=== PATIENT | female | born 1970 ===

== ENCOUNTER 2022-03-02 15:40 | Emergency (ER) | payer OTHER, SELFPAY ==
[2022-03-02 16:15] VITALS: BP 148/84; PULSE 99; RESP 20; TEMP 36.4; O2SAT 100; BMI 38.2
--- NOTE | 2022-03-02 17:15 | ED_ITS ---
HPI - General Adult General Time Seen by Provider: 17:14 Date Seen: 03/02/22 Chief complaint: Eye Problems Stated complaint: possible pink eye Time Seen by Provider: 03/02/22 17:05 History of Present Illness HPI narrative: 51-year-old female with history of diabetes, high blood pressure, hyperlipidemia, who presents with left eye pain and burning along with redness which started yesterday. Mild blurring, seems little worse in bright light. Some mattering. Describes the pain is itching and burning. She does wear contacts. She denies any injury or foreign body sensation today. No associated headache, nausea, or vomiting. Related Data Home Medications Medication Instructions Recorded Confirmed lisinopril 03/02/22 metformin 1,000 mg tablet 1,000 mg PO BID 03/02/22 03/02/22 pantoprazole 20 mg tablet,delayed 20 mg PO DAILY 03/02/22 03/02/22 release (Protonix) pantoprazole 40 mg tablet,delayed 40 mg PO BID 03/02/22 03/02/22 release sertraline 03/02/22 triamterene-hydrochlorothiazid 03/02/22 Previous Rx's Medication Instructions Recorded erythromycin 5 mg/gram (0.5 %) eye 0.5 inch OPHTHALMIC (EYE) BID 5 03/02/22 ointment Days #3.5 g Allergies Allergy/AdvReac Type Severity Reaction Status Date / Time montelukast [From Singulair] Allergy Verified 03/02/22 16:21 Review of Systems Status of ROS: Reports: 10 or more systems reviewed and unremarkable except as noted in History and below Exam Narrative: Exam Narrative: General: well nourished , NAD Head: Atraumatic and normocephalic ENT: External ears and external nose are normal Eyes: Dysconjugate gaze. Mild injection of the left conjunctiva with no ciliary flush, pupil is reactive. No pain with external ocular movements, no redness, tenderness, or swelling of the periorbital area. Mild white discharge. Neck: Full spontaneous range of motion of the neck Lungs: No respiratory distress Musculoskeletal: No tenderness or deformity Neurologic: No gross focal neurologic deficits Skin: No rashes Psych: Mood and affect are appropriate Const: Vital Signs, click to edit/add: Vital Signs - 24 hr 03/02/22 16:15 Temperature 97.6 F Pulse Rate [Left P ulse Oximeter] 99 Respiratory Rate 20 Blood Pressure [Ri ght Upper Arm] 148/84 H Pulse Oximetry 100 Documenting provider has reviewed patient's vital signs: yes Course Vital Signs Vital signs: Initial Vital Signs Temperature 97.6 F 03/02/22 16:15 Temperature Source Temporal Artery Scan 03/02/22 16:15 Pulse Rate 99 03/02/22 16:15 Pulse Rhythm 03/02/22 16:15 Respiratory Rate 20 03/02/22 16:15 Blood Pressure 148/84 H 03/02/22 16:15 Blood Pressure Mean 105 03/02/22 16:15 Blood Pressure Position Sitting 03/02/22 16:15 Pulse Oximetry 100 03/02/22 16:15 Oxygen Delivery Method 03/02/22 16:15 Vital Signs Temperature 97.6 F 03/02/22 16:15 Pulse Rate 99 03/02/22 16:15 Respiratory Rate 20 03/02/22 16:15 Blood Pressure 148/84 H 03/02/22 16:15 Pulse Oximetry 100 03/02/22 16:15 Temperature 97.6 F 03/02/22 16:15 Pulse Rate 99 03/02/22 16:15 Respiratory Rate 20 03/02/22 16:15 Blood Pressure 148/84 H 03/02/22 16:15 Pulse Oximetry 100 03/02/22 16:15 Medical Decision Making MDM Narrative Medical decision making narrative: Patient seen and examined, prior records reviewed. Differential diagnosis i ncludes but not limited to conjunctivitis, allergic reaction, seasonal allergies, corneal abrasion, periorbital cellulitis, preseptal cellulitis or abscess, acute angle closure glaucoma. Patient presents with left eye redness, itching, and burning. No ciliary flush, patient appears quite comfortable with no associated symptoms including headache nor nausea vomiting, no tenderness of the orbit on exam, acute angle closure glaucoma is clinically unlikely. Redness is quite mild but given that patient wears contacts and was around a lot of children recently, will be started on erythromycin ointment although this most likely is a viral conjunctivitis. Follow-up with ophthalmology early next week. Discharge Plan Discharge Clinical Impression: Conjunctivitis Patient Disposition: Home, Self-Care Condition: Stable Instructions: Conjunctivitis (ED) Additional Instructions: Take medications as prescribed. Cool packs for comfort. Tylenol or ibuprofen as needed for pain. Follow up in the eye clinic in 2-3 days for evaluation. Activity Level: No Restrictions Discharge Diet: Diabetic Prescriptions: New erythromycin 5 mg/gram (0.5 %) ointment 0.5 inch ophthalmic (eye) BID 5 Days Qty: 3.5 0RF No Action metformin 1,000 mg tablet 1,000 mg PO BID 0RF lisinopril 0RF triamterene-hydrochlorothiazid 0RF pantoprazole 40 mg tablet,delayed release (DR/EC) 40 mg PO BID 0RF pantoprazole [Protonix] 20 mg tablet,delayed release (DR/EC) 20 mg PO DAILY 0RF sertraline [Zoloft] 0RF Follow Up/Referrals: [facility] [Provider Group] - 2 Days Stand Alone Forms: [employer] Info Instructions
== END 2022-03-02 17:43 | disposition home or self-care (01) ==
LOC: ED 17:33
PROVIDERS: Emergency Provider Family Medicine; PCP Orthopaedic Surgery Hand Surgery
DX: H10.022 Other mucopurulent conjunctivitis, left eye (principal)
CPT/HCPCS: 99283; 99284

== ENCOUNTER 2023-02-12 11:58 | Inpatient (IN) | payer OTHER, SELFPAY ==
[2023-02-12] VITALS (8 sets, daily range): BP systolic 92–113; BP diastolic 58–99; PULSE 72–81; RESP 16–18; TEMP 36.1–36.6; O2SAT 95–100; BMI 31.0; BMI 32.3
--- NOTE | 2023-02-12 12:51 | CRLHL7_ITS ---
For Patients: As a result of the Cures Act, medical imaging exams and procedure reports are released immediately into your electronic medical record. You may view this report before your referring provider. If you have questions, please contact your health care provider. INDICATION: Injury COMPARISON: None TECHNIQUE: CT examination of the head was performed as axial sections without intravenous contrast. Images were obtained from the vertex of the skull through the skull base. Please note that all CT scans at this facility use dose modulation, iterative reconstruction, and/or weight-based dosing when appropriate to reduce radiation dose to as low as reasonably achievable. FINDINGS: The brain shows no sign of mass lesion, mass effect, hemorrhage, or edema. The ventricles and sulci are normal in appearance for the patient`s age. The visualized portions of the orbits are normal in appearance. The osseous structures are normal in their appearance with no sign of abnormality in the skull base or calvarium. IMPRESSION: No acute intracranial posttraumatic findings. Unremarkable examination. Please note that all CT scans at this facility use dose modulation, iterative reconstruction, and/or weight-based dosing when appropriate to reduce radiation dose to as low as reasonably achievable. Dictated by Mitul Roberts MD @ 02/12/2023 3:33:13 PM (Electronically Signed)
--- NOTE | 2023-02-12 12:53 | ED_ITS ---
HPI - General Adult General Chief complaint: Diarrhea Stated complaint: cant walk / talk Time Seen by Provider: 02/12/23 12:27 History of Present Illness HPI narrative: This 52-year-old female comes in reporting diarrhea for most of the days of the past 4 weeks. She states that she did go to a [place] facility and was treated with an antibiotic as there was a thought that she might have an ear infection. She does not report any fevers. The diarrhea was present before she started the antibiotic. She denies having any blood in the toilet. She states that she feels lightheaded at times and off balance and has fallen a couple times. She does not report any injury as result of the falls. She arrives here with normal vital signs. Related Data Home Medications Medication Instructions Recorded Confirmed lisinopril 20 mg 03/02/22 metformin 1,000 mg tablet 1,000 mg PO BID 03/02/22 02/12/23 pantoprazole 20 mg tablet,delayed 20 mg PO DAILY 03/02/22 02/12/23 release (Protonix) pantoprazole 40 mg tablet,delayed 40 mg PO BID 03/02/22 03/02/22 release sertraline 40 mg 03/02/22 triamterene-hydrochlorothiazid 03/02/22 albuterol sulfate 90 mcg/actuation 2 puff inhalation Q4H PRN dyspnea 02/12/23 02/12/23 aerosol inhaler aspirin 81 mg capsule 81 mg PO DAILY 02/12/23 02/12/23 fluticasone propionate 50 1 - 2 spray intranasal DAILY 02/12/23 02/12/23 mcg/actuation nasal spray,suspension insulin glargine-yfgn 100 unit/mL 30 unit subcut QPM 02/12/23 02/12/23 (3 mL) subcutaneous pen (Semglee (insulin glargine-yfgn) Pen) pioglitazone 45 mg tablet 45 mg PO DAILY 02/12/23 02/12/23 simvastatin 40 mg tablet 40 mg PO QPM 02/12/23 02/12/23 triamterene 75 1 tab PO DAILY 02/12/23 02/12/23 mg-hydrochlorothiazide 50 mg tablet Previous Rx's Medication Instructions Recorded erythromycin 5 mg/gram (0.5 %) eye 0.5 inch ophthalmic (eye) BID 5 03/02/22 ointment days #3.5 grams Allergies Allergy/AdvReac Type Severity Reaction Status Date / Time montelukast [From Singulair] Allergy Verified 03/02/22 16:21 Review of Systems Status of ROS: Reports: 10 or more systems reviewed and unremarkable except as noted in History and below Narrative: Constitutional: No fevers, no weight gain or loss. Eyes: No discharge. No vision changes. HENT: No congestion, no sore throat, no ear pain. Cardiovascular: No chest pain, no palpitations. Respiratory: No shortness of breath, no wheezes, no cough. Gastrointestinal: No abdominal pain, no vomiting. Diarrhea as reported above. Genitourinary: No dysuria, no hematuria. Musculoskeletal: Normal range of motion. Skin: No rashes, no pruritis. Neurological: No weakness, sensory change, speech change. She reports lightheadedness episodes. Endo/Heme/Allergies: No bruising or bleeding. No polydipsia. Pysch: no suicidality, no anxiety, no insomnia. All other systems reviewed and are negative. [facility] Social History Smoking Status: Current every day smoker What tobacco products do you use: cigarettes How often do you have a drink containing alcohol: 2-3 times a week AUDIT-C Alcohol total score: 3 Non-prescribed substance use: denies use Exam Narrative: Exam Narrative: Constitutional: Well-developed, well-nourished, no acute distress. HEENT: Normocephalic, atraumatic. Neck: Normal range of motion. Nontender. Supple. Heart: Regular. No murmurs. Normal rate. Intact distal pulses. Lungs: Clear to auscultation. No chest discomfort. No wheezes, rhonchi, or rales. Abdomen: Normal bowel sounds. Nontender. No rebound tenderness. Genitalia: Deferred. Back: No midline tenderness. Normal range of motion. Extremities: Normal range of motion. No injury. Skin: Intact. No rash. Warm. No erythema or pallor. Neurologic: No altered sensation. No weakness. Alert and oriented. Psychiatric: No suicidality. No anxiety or depression. No insomnia. Nursing notes and vitals signs are reviewed. Const: Vital Signs, click to edit/add: Vital Signs - 24 hr 02/12/23 12:17 Temperature 96.9 F L Pulse Rate [Right Brachial] 81 Respiratory Rate 18 Blood Pressure [Ri ght Upper Arm] 113/99 H Course Vital Signs Vital signs: Initial Vital Signs Temperature 96.9 F L 02/12/23 12:17 Temperature Source Temporal Artery Scan 02/12/23 12:17 Pulse Rate 81 02/12/23 12:17 Respiratory Rate 18 02/12/23 12:17 Blood Pressure 113/99 H 02/12/23 12:17 Blood Pressure Mean 103 02/12/23 12:17 Vital Signs Temperature 96.9 F L 02/12/23 12:17 Pulse Rate 81 02/12/23 12:17 Respiratory Rate 18 02/12/23 12:17 Blood Pressure 113/99 H 02/12/23 12:17 Temperature 96.9 F L 02/12/23 12:17 Pulse Rate 81 02/12/23 12:17 Respiratory Rate 18 02/12/23 12:17 Blood Pressure 113/99 H 02/12/23 12:17 Medical Decision Making MDM Narrative Medical decision making narrative: This patient arrives with report of weakness and ongoing diarrhea. An IV was established and labs were drawn. She did receive a L of normal saline intravenously. Labs returned with evidence of severe hyponatremia with sodium at 105. Her potassium and chloride levels are also decreased. The patient states that she has a history of hypercalcemia and there has not been any known cause for this. Her calcium today is elevated at 11. This patient has hyponatremia is chronic in nature. She does pose some risk for seizure or other complications yet some reassurance is there and that it is a chronic condition. The patient states that she has been drinking lots of water, more than 2 gal of water per day. She may have a syndrome of inappropriate antidiuretic hormone. Additionally she is taking triamterene hydrochlorothiazide which can also contribute to her hyponatremia. CT imaging of her head returns with no acute findings. I spoke with the hospitalist adult basic education instructor, Dr. Cota, who will arrange for admission and replenish her sodium balance over time. Lab Data Labs: Lab Results 02/12/23 Range/Units 13:40 WBC 8.52 (4.50-11.00) K/uL RBC 4.59 (4.00-5.20) m/uL Hgb 13.8 (12.0-16.0) gm/dL Hct 36.5 (33.0-51.0) % MCV 80 (80-100) fL MCH 30 (26-34) pg MCHC 38 H (32-36) gm/dL RDW Coeff of Jane 12.0 (11.5-15.5) % Plt Count 283 (140-440) K/uL Neut % (Auto) 73.3 H (42.0-72.0) % Lymph % (Auto) 17.8 L (20-44) % [place] % (Auto) 7.0 (0.0-11.0) % Eos % (Auto) 1.1 (0.0-7.0) % Baso % (Auto) 0.4 (0.0-3.0) % Neut # (Auto) 6.20 (1.7-7.0) K/uL Lymph # (Auto) 1.50 (0.90-2.90) K/uL [place] # (Auto) 0.60 (0.00-0.90) K/UL Eos # (Auto) 0.09 (0.00-0.50) K/uL Baso # (Auto) 0.03 (0.00-0.30) K/uL Sodium 105 L* (135-149) mmol/L Potassium 3.4 L (3.6-5.1) mmol/L Chloride 67 L (96-114) mmol/L Carbon Dioxide 25 (20-32) mmol/L BUN 28 (7-30) mg/dL Creatinine 2.0 H (0.5-1.5) mg/dL Estimated Creat Clear 34.39 Estimated GFR 30 ml/min Glucose 100 (60-115) mg/dL Calcium 11.0 H (8.4-10.6) mg/dL Discharge Plan Discharge Clinical Impression: Hyponatremia Patient Disposition: Admitted As Inpatient Condition: Unchanged Prescriptions: No Action metformin 1,000 mg tablet 1,000 mg PO BID lisinopril 20 mg triamterene-hydrochlorothiazid pantoprazole 40 mg tablet,delayed release (DR/EC) 40 mg PO BID pantoprazole [Protonix] 20 mg tablet,delayed release (DR/EC) 20 mg PO DAILY sertraline [Zoloft] 40 mg erythromycin 5 mg/gram (0.5 %) ointment 0.5 inch ophthalmic (eye) BID 5 Days Qty: 3.5 0RF pioglitazone 45 mg tablet 45 mg PO DAILY simvastatin 40 mg tablet 40 mg PO QPM triamterene-hydrochlorothiazid 75-50 mg tablet 1 tab PO DAILY albuterol sulfate 90 mcg/actuation HFA aerosol inhaler 2 puff INHALATION Q4H PRN (Reason: dyspnea) fluticasone propionate 50 mcg/actuation spray,suspension 1 - 2 spray INTRANASAL DAILY insulin glargine-yfgn [Semglee(insulin glarg-yfgn)Pen] 100 unit/mL (3 mL) insulin pen 30 unit subcut QPM aspirin 81 mg capsule 81 mg PO DAILY Follow Up/Referrals: Oumou Morillo MD [Primary Care Provider] -
[2023-02-12] MEDS: 0.9 % SODIUM CHLORIDE 1000 ml 1,000 ML 1200 ML IV (13:51)
[2023-02-12] MEDS: ONDANSETRON 2 MG/ML inj 4 MG IVP (13:51)
[2023-02-12 14:03] LABS: Chloride* 67 mmol/L (96-114)
[2023-02-12 14:04] LABS: Potassium* 3.4 mmol/L (3.6-5.1)
[2023-02-12 14:06] LABS: Est. Creatinine Clearance* 34.39; Estimated Glomerular Filt Rate 30 ml/min
[2023-02-12 14:07] LABS: Blood Urea Nitrogen* 28 mg/dL (7-30); Carbon Dioxide* 25 mmol/L (20-32); Glucose* 100 mg/dL (60-115)
[2023-02-12 14:12] LABS: Sodium* 105 mmol/L (135-149)
[2023-02-12 14:19] LABS: Basophils Absolute Auto 0.03 K/uL (0.00-0.30); Basophils Percent Auto 0.4 % (0.0-3.0); Eosinophils Absolute Auto 0.09 K/uL (0.00-0.50); Eosinophils Percent Auto 1.1 % (0.0-7.0); Hematocrit 36.5 % (33.0-51.0); Hemoglobin* 13.8 gm/dL (12.0-16.0); Immature Granulocytes Abs Auto 0.03 K/uL (0.00-0.30); Immature Granulocytes Pct Auto 0.4 %; Lymphocytes Percent Auto 17.8 % (20-44); Mean Corpuscular HGB Conc 38 gm/dL (32-36); Mean Corpuscular Hemoglobin 30 pg (26-34); Mean Corpuscular Volume 80 fL (80-100); Neutrophils Percent Auto 73.3 % (42.0-72.0); Platelet Count* 283 K/uL (140-440); Red Blood Count 4.59 m/uL (4.00-5.20); White Blood Count* 8.52 K/uL (4.50-11.00)
--- NOTE | 2023-02-12 14:23 | ED.NURSE ---
Pt's sister approached the nurse's station after Dr. Browning notified the pt of critical sodium level. Sister reports to this senior copywriter that she would recommend transfer to [facility] since pt will most likely be hospitalized. Pt is an established [place] pt and regularly sees physician at [facility]. Dr. Borwning notified in writing and verbally @ [id number].
[2023-02-12 14:29] LABS: Slide Review Reflex No
[2023-02-12 17:31] LABS: Albumin* 4.7 g/dL (3.3-5.0)
[2023-02-12 17:34] LABS: Aspartate Amino Transferase* 56 U/L (12-35); Bilirubin Direct* 0.7 mg/dL (0.0-0.5); Bilirubin Total* 0.8 mg/dL (0.1-1.5); Total Protein* 7.8 g/dL (6.0-8.3)
[2023-02-12 17:35] LABS: Alanine Aminotransferase* 36 U/L (4-35); Alkaline Phosphatase* 77 U/L (40-150)
--- NOTE | 2023-02-12 17:36 | P.IMHP_ITS ---
Hospitalist- H&P: HPI History of Present Illness Time Seen by Provider: 16:00 Date Seen: 02/12/23 Chief complaint: Weak, falls, difficulty talking Narrative: Jerilyn Orosco is a 52 year old woman in her usual state of health until about 4 weeks ago. 4 weeks ago she had the onset of diarrhea. She has had persistent diarrhea since then although it seems to have resolved over the last couple of days. She has not had a bowel movement for the last couple of days. Maximum number of stool she had an any particular day was 8. Describes her stools as watery, dark, sometimes green. Denies blood or melena in her stool. Denies frothy stools. Denies light-colored stools. In association with this she has had decreased urine output. She has had a dry mouth. She has tried to drink a lot a water to maintain her state of hydration. She states she has drink up to 3 bottles of water daily to try to achieve this. Despite that she is still has had a dry mouth. Denies fevers, rigors, diaphoresis. Denies rashes. Has continued to take her multiple medications during this time including her hydrochlorothiazide and triamterene. The patient's sister, Bridger, has been concern about the patient for the last 2 weeks and has become increasingly concerned over the last couple of days. Sister notes that the patient's thought processes seem slower and her speech seems slower than usual. Sister notes patient has been verbally more snappy an abusive. Couple of days ago the patient had multiple falls in the home. Sister bagged the patient to come in for assessment but the patient refused. For some reason the patient was agreeable to coming in today finally. Patient and sister indicated that the patient does not use any street or recreational drugs. Patient does smoke tobacco, 1/2 pack per day. Patient rarely drinks alcoholic beverages. Review of Systems Status of ROS: Reports: 10 or more systems reviewed and unremarkable except as noted in History and below Narrative: Aside from the 5 falls that the patient experience about 2 days ago, patient has had no other trauma or injury. Patient had no visible manifestation of the falls that she sustained, no lacerations, no contusions, no skin tears, no abrasions. Patient denies fevers, rigors, diaphoresis. No other signs or symptoms of infectious diseases. Denies chest heaviness, pressure, tightness, or pain. Denies dyspnea at rest, paroxysmal nocturnal dyspnea, orthopnea. Denies syncope or near-syncope. Denies nausea or vomiting. Acknowledges decreased interest in eating. Denies claudication or edema. Denies palpitations or chest fluttering. Has had no weight loss or weight gain. Denies night sweats. [facility] Medical History (Updated 02/12/23 @ 18:04 by Mason Cota MD) Uncomplicated asthma ?J45.909 - Unspecified asthma, uncomplicated (ICD-10) Tobacco dependence ?F17.200 - Nicotine dependence, unspecified, uncomplicated (ICD-10) Gastroesophageal reflux disease ?K21.9 - Gastro-esophageal reflux disease without esophagitis (ICD-10) Mixed hyperlipidemia ?E78.2 - Mixed hyperlipidemia (ICD-10) Anxiety disorder ?F41.9 - Anxiety disorder, unspecified (ICD-10) Chronic insomnia ?F51.04 - Psychophysiologic insomnia (ICD-10) Obesity (BMI 30.0-34.9) ?E66.9 - Obesity, unspecified (ICD-10) Diabetes mellitus type 2 in obese ?E11.69 - Type 2 diabetes mellitus with other specified complication (ICD-10) ?E66.9 - Obesity, unspecified (ICD-10) Essential hypertension ?I10 - Essential (primary) hypertension (ICD-10) Hypercalcemia ?E83.52 - Hypercalcemia (ICD-10) Surgical History (Updated 02/12/23 @ 17:21 by Mason Cota MD) S/P tonsillectomy ?Z90.89 - Acquired absence of other organs (ICD-10) S/P gastrointestinal surgery ?Z98.890 - Other specified postprocedural states (ICD-10) Status post lumbar discectomy ?Z98.890 - Other specified postprocedural states (ICD-10) Family History (Updated 02/12/23 @ 17:31 by Mason Cota MD) Father Heart disease Diabetes High blood pressure Stroke High cholesterol Sister Depression Sarcoidosis Social History (Updated 02/12/23 @ 17:27 by Mason Cota MD) Narrative: Lives alone. . No children. Designates her sister, Bridger, , as her health spokesperson in event she is unable to speak on her own behalf. Desires full resuscitation in event of cardiopulmonary demise. What is your current living situation: I presently have a place to live Problems where you live: no known problems and other Problems where you live details: takes a long time for me to get up the stairs. 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 Highest level of school completed/degree received: Bachelor's degree Smoking Status: Current every day smoker What tobacco products do you use: cigarettes Smoking packs per day: 0.5 Smoking cigarettes per day: 10.0 Years smoked: 25 Smoking pack-years: 12.50 Do you use any of these nicotine containing products: None Second hand tobacco smoke exposure: No How often do you have a drink containing alcohol: 2-3 times a week Alcohol type details: stopped about a month ago How often do you have six or more drinks on one occasion: Never AUDIT-C Alcohol total score: 3 Non-prescribed substance use: denies use Caffeine: Yes (200mg caffiene pill) How often does anyone, including family, friends and others, physically hurt you : How often does anyone, including family, friends and others, insult or talk down to you: How often does anyone, including family, friends and others, threaten you with harm: How often does anyone, including family, friends and others, scream or curse at you: service: No Meds Home Medications and Allergies Home Medications Medication Instructions Recorded Confirmed Type lisinopril 20 mg PO DAILY 03/02/22 02/12/23 History metformin 1,000 mg tablet 1,000 mg PO BID 03/02/22 02/12/23 History pantoprazole 40 mg tablet,delayed 40 mg PO BID 03/02/22 02/12/23 History release albuterol sulfate 90 mcg/actuation 2 puff inhalation Q4H PRN dyspnea 02/12/23 02/12/23 History aerosol inhaler aspirin 81 mg capsule 81 mg PO DAILY 02/12/23 02/12/23 History fluticasone propionate 50 1 - 2 spray intranasal DAILY 02/12/23 02/12/23 History mcg/actuation nasal spray,suspension insulin glargine-yfgn 100 unit/mL 30 unit subcut HS 02/12/23 02/12/23 History (3 mL) subcutaneous pen (Semglee (insulin glargine-yfgn) Pen) metformin 500 mg tablet 1,000 mg PO BID 02/12/23 02/12/23 History pioglitazone 45 mg tablet 45 mg PO DAILY 02/12/23 02/12/23 History sertraline 50 mg tablet 50 mg PO DAILY 02/12/23 02/12/23 History simvastatin 40 mg tablet 40 mg PO HS 02/12/23 02/12/23 History trazodone 50 mg tablet 50 mg PO QPM 02/12/23 02/12/23 History triamterene 50 mg capsule 50 mg PO BID 02/12/23 02/12/23 History Allergies Allergy/AdvReac Type Severity Reaction Status Date / Time montelukast [From [facility]] Allergy Verified 03/02/22 16:21 Exam Narrative: Exam Narrative: Appears comfortable and in no acute distress. Vision and hearing are grossly normal. Somewhat anxious, otherwise friendly, talkative, articulate. Mood and affect are congruent. Alert and oriented to self, place, time, situation. External auditory canals are clear with bilateral normal tympanic membranes. Midline nasal septum normal nasal mucosa. No icterus or jaundice. Pupils equally round react to light and accommodation. Dry buccal mucosa. Dentition in fair repair. No adenopathy in the pre or postauricular chains, anterior-posterior cervical chains, supra or infraclavicular fossa, submandibular or submental fossa. No axillary lymphadenopathy. Neck is supple. Midline trachea. Normal thyroid. No JVD or hepatojugular reflux. No carotid bruits. Lungs are clear to auscultation after coughing and clearing her throat. No wheezing, rhonchi, or rales. Chest wall excursions are full. Heart tones with regular rhythm, normal S1-S2. Abdomen with active bowel sounds, soft, nontender. No organomegaly masses. Independent in transfer, station and gait with standby assist only. No focal motor neurologic deficits. Barely palpable bilateral lower extremity pulses with capillary refill less than 3 seconds in upper and lower extremities. Const: Vital Signs, click to edit/add: Vital Signs - 24 hr 02/12/23 12:17 02/12/23 16:57 Temperature 96.9 F L 97.7 F Pulse Rate [Pulse Oximeter] 74 Pulse Rate [Right Brachial] 81 Respiratory Rate 18 18 Blood Pressure [Le ft Arm] 96/58 L Blood Pressure [Ri ght Upper Arm] 113/99 H Pulse Oximetry 100 Oxygen Delivery Me thod Room Air Documenting provider has reviewed patient's vital signs: yes Hospitalist - H&P: Result Labs Labs: Short CBC 02/12/23 Range/Units 13:40 WBC 8.52 (4.50-11.00) K/uL Hgb 13.8 (12.0-16.0) gm/dL Hct 36.5 (33.0-51.0) % Plt Count 283 (140-440) K/uL BMP 02/12/23 13:40 Sodium 105 L* Potassium 3.4 L Chloride 67 L Carbon Dioxide 25 BUN 28 Creatinine 2.0 H Glucose 100 Calcium 11.0 H Liver Function 02/12/23 Range/Units 13:40 Albumin 4.7 (3.3-5.0) g/dL Imaging Chest x-ray: Attestation: I have reviewed the pertinent imaging results. Radiologist's impression: No obvious infiltrates. Assessment and Plan Assessment and plan (1) Hyponatremia: Problem comment: Sodium level 105. Patient not Aaron did or coma toes, therefore likely occurred slowly over a period of time. Most likely multifactorial including from stated diarrhea, use of hydrochlorothiazide, and water intoxication. Status: Acute Assessment and Plan: 1. Fluid restriction 1500 mL daily 2. Normal saline 150 mL IV per hour 3. Strive to increase sodium slowly by about 6 mEq per 24 hours. Monitor sodium closely. (2) Diarrhea: Problem comment: Onset 4 weeks ago and now resolved. Consider further workup if reoccurs. Status: Acute (3) Water intoxication syndrome: Problem comment: 1500 mL fluid restriction. Status: Acute (4) Medication adverse effect: Problem comment: HCTZ associated hyponatremia Status: Acute (5) Hypercalcemia: Problem comment: Working with intranet specialist, Dr. Joanna Yanez. Presumed primary hyperparathyroidism. Status: Acute (6) Hypokalemia: Problem comment: Likely from wasting from diarrhea. Potassium supplementation and monitor. Status: Acute (7) Anxiety disorder: Problem comment: Continue with current SSRI, sertraline. Status: Acute (8) Diabetes mellitus type 2 in obese: Problem comment: Sliding scale insulin while in hospital. Status: Acute (9) Tobacco dependence: Problem comment: 1/2 ppd x 25 years. 14 mg patch applied transdermally once daily. Neck a tall inhaler as needed. Status: Acute Plan 1. Reviewed above with patient and her sister. 2. They are agreeable to hospital admission and treatment plan as specified above. 3. Make adjustments as specified above for now. Consider sodium chloride tabs and hypertonic saline administration if warranted.
[2023-02-12] MEDS: ACETAMINOPHEN 325 MG TABLET 650 MG PO (17:39)
[2023-02-12] MEDS: 0.9 % SODIUM CHLORIDE 1000 ml 1,000 ML 150 ML IV (17:47)
[2023-02-12 18:17] LABS: Sodium* 107 mmol/L (135-149)
[2023-02-12] MEDS: MELATONIN 3 MG TABLET 6 MG PO (18:43)
--- NOTE | 2023-02-12 19:27 | PC.NURSE ---
Admission-- Pleasant, cooperative, alert and oriented but restless patient was admitted to Med-Surg from ED. Pt mildly hypotensive upon arrival, VS otherwise WNL. Afebrile. SPO2 100% on RA. She c/o generalized pain which she rated 10 out of 10 while expressing concern regarding the television. Pt was given Tylenol with apparent relief. LS CTA. Telemetry shows NSR with BBB. Pt denied nausea, but ate only a few bites of a bagel for her dinner. Sister was at bedside and appears loving and supportive. Report to ARTEM Guy.
[2023-02-12] MEDS: MAG HYDROX/ALUMINUM HYD/SIMETH 30 ML ORAL.SUSP 15 ML PO (19:59)
[2023-02-12] MEDS: TRAZODONE HCL 50 MG TABLET PO (19:59)
[2023-02-12] MEDS: CARBOXYMETHYLCELLULOSE (REFRESH PLUS) TEARS 1 DROP EYE-BOTH (21:15)
--- NOTE | 2023-02-12 22:39 | PC.NURSE ---
End of shift nursing note, care provided from [id number]: Pt alert and oriented to questions, but periodically states off topic remark or question, pt asked keno writer/runner if owned a Adam murillo. Vitals stable with softer BP, 96/60 w/ manual cuff. Pt refused orthostatic BPs to be taken, pt stated annoyance that keno writer/runner had to check pt's vitals at all. Pt up x2 w/ SBA-Ax1 to bathroom, pt had 2 semi-incontinent episodes of loose BM, small amount in brief and small amount in toilet. No urine noted in hat, pt may have missed sitting further back on toilet, pt bladder scanned and highest result of 62ml. Pt refused evening Levemir of 30 units. Pt states she does not feel comfortable taking insulin as she has been bottoming out at home, BS 97 before bed, after snack. PRN Maalox admin per pt request and eye drops for dry L eye. NS con't at 150ml/hr to R wrist IV. Hat in toilet for UA. Bed alarm on and call light within reach, pt has called appropriately this evening for bathroom needs.
[2023-02-13] VITALS (10 sets, daily range): BP systolic 68–113; BP diastolic 30–71; PULSE 72–81; RESP 16; TEMP 36.1–36.9; O2SAT 95–100; BMI 32.0
[2023-02-13 00:19] LABS: Sodium* 109 mmol/L (135-149)
[2023-02-13] MEDS: 0.9 % SODIUM CHLORIDE 1000 ml 1,000 ML 100 ML IV ×3 (00:35→21:59)
[2023-02-13 04:16] LABS: Appearance Urine Clear (Clear); Bilirubin Urine Negative (Negative); Blood Urine Negative (Negative); Color Urine Yellow (Yellow); Glucose Urine Negative (Negative); Ketones Urine Negative (Negative); Leukocyte Esterase Urine Negative (Negative); Nitrite Urine Negative (Negative); Protein Urine Trace (Negative); Specific Gravity Urine <= 1.005 (1.000-1.030); Urobilinogen Urine 0.2 (0.2-1.0); pH Urine 5.5 (5.0-8.5)
[2023-02-13 04:27] LABS: RBC Urine 0-2 (0-2); Squamous Epithelial Cell Urine Few (None-Few); WBC Urine 0-2 (0-5)
[2023-02-13] MEDS: OMEPRAZOLE 20 MG CAPSULE DR PO (06:40)
[2023-02-13] MEDS: CARBOXYMETHYLCELLULOSE (REFRESH PLUS) TEARS 1 DROP EYE-BOTH ×2 (06:41→20:02)
[2023-02-13 07:12] LABS: Ionized Calcium* 1.18 mmol/L (1.11-1.30)
[2023-02-13 07:13] LABS: Hematocrit 33.7 % (33.0-51.0); Hemoglobin* 12.7 gm/dL (12.0-16.0); Mean Corpuscular HGB Conc 38 gm/dL (32-36); Mean Corpuscular Hemoglobin 31 pg (26-34); Mean Corpuscular Volume 81 fL (80-100); Platelet Count* 236 K/uL (140-440); Red Blood Count 4.17 m/uL (4.00-5.20); White Blood Count* 6.04 K/uL (4.50-11.00)
[2023-02-13 07:19] LABS: Slide Review Reflex No
[2023-02-13 07:45] LABS: C Reactive Protein* 0.7 mg/dL (0.5-1.0)
[2023-02-13 08:06] LABS: Magnesium* 0.9 mg/dL (1.5-2.6)
[2023-02-13] MEDS: BENZOCAINE/MENTHOL 1 EACH LOZENGE MUCOUS MEM ×3 (08:06→18:48)
[2023-02-13] MEDS: IBUPROFEN 600 MG TABLET PO (08:07)
[2023-02-13] MEDS: PIOGLITAZONE HCL 15 MG TABLET 45 MG PO (08:38)
[2023-02-13] MEDS: SODIUM CHLORIDE 0.9 % (FLUSH) 10 ML SYRINGE 5 ML IVF ×2 (08:38→21:59)
[2023-02-13] MEDS: SERTRALINE 50 MG TABLET PO (08:38)
[2023-02-13] MEDS: ASPIRIN 81 MG TABLET EC PO (08:38)
[2023-02-13 08:57] LABS: Thyroid Stimulating Hormone* 0.354 uIU/mL (0.270-4.20)
[2023-02-13] MEDS: MAGNESIUM IV 4 GM/100 ML PIGGYBACK IVPB (09:29)
[2023-02-13 09:30] LABS: Chloride* 81 mmol/L (96-114)
[2023-02-13 09:32] LABS: Creatinine* 1.1 mg/dL (0.5-1.5); Est. Creatinine Clearance* 62.52; Estimated Glomerular Filt Rate 60 ml/min
[2023-02-13 09:33] LABS: Blood Urea Nitrogen* 25 mg/dL (7-30); Calcium* 10.4 mg/dL (8.4-10.6); Carbon Dioxide* 22 mmol/L (20-32); Glucose* 84 mg/dL (60-115)
[2023-02-13] MEDS: ACETAMINOPHEN 325 MG TABLET 650 MG PO ×2 (09:34→17:15)
[2023-02-13 09:47] LABS: Potassium* 2.8 mmol/L (3.6-5.1); Sodium* 113 mmol/L (135-149)
[2023-02-13 10:12] LABS: Lab Add On Test New Spec Needed
[2023-02-13] MEDS: POTASSIUM BICARB 25 MEQ EFFERVESCENT TAB 50 MEQ PO (10:25)
--- NOTE | 2023-02-13 12:15 | PM.IMPN1 ---
Progress Note: A&P Assessment and plan (1) Hyponatremia: Problem details: Sodium level 105. Main symptoms appear to be fatigue and weakness and ataxia. Most likely multifactorial including from stated diarrhea, use of hydrochlorothiazide, and water intoxication. Status: Acute (2) Hypokalemia: Problem details: Likely from wasting from diarrhea. Potassium supplementation and monitor. Status: Acute (3) Hypomagnesemia: Problem details: Replace and follow. Resume outpatient magnesium supplementation Status: Acute (4) Tobacco dependence: Problem details: 1/2 ppd x 25 years. 14 mg patch applied transdermally once daily. Status: Acute (5) Diabetes mellitus type 2 in obese: Problem details: Sliding scale insulin while in hospital. Status: Acute (6) Hypercalcemia: Problem details: Working with bulk clerk, Dr. Joanna Yanez. Presumed primary hyperparathyroidism. Status: Acute (7) Diarrhea: Problem details: Onset 4 weeks ago and continuing. Check C diff, O&P, cultures Status: Acute (8) Hypotension: Problem details: Likely primarily due to volume depletion. Check cortisol level due to multiple other electrolyte and endocrine concerns Status: Acute Plan Patient is admitted to the hospital for management of multiple electrolyte problems. Will need cautious and gradual correction of hyponatremia and correction of magnesium and potassium. She still having ongoing diarrhea so this should be addressed with testing and treatment. Will hold hydrochlorothiazide triamterene. Time Spent With Patient Total time spent: Total time spent today is 50 minutes, 35 minutes in coordination of care and discussing with patient and other providers ongoing evaluation management of electrolyte problems and diarrhea Subjective Date Seen: 02/13/23 Interval history: Jerilyn Orosco is a 52 year old woman in her usual state of health until about 4 weeks ago.? 4 weeks ago she had the onset of diarrhea.? She has had persistent diarrhea since then although it seems to have resolved over the last couple of days.? She has not had a bowel movement for the last couple of days.? Maximum number of stool she had an any particular day was 8.? Describes her stools as watery, dark, sometimes green.? Denies blood or melena in her stool.? Denies frothy stools.? Denies light-colored stools.? In association with this she has had decreased urine output.? She has had a dry mouth.? She has tried to drink a lot a water to maintain her state of hydration.? She states she has drink up to 3 bottles of water daily to try to achieve this.? Despite that she is still has had a dry mouth.? Denies fevers, rigors, diaphoresis.? Denies rashes.? Has continued to take her multiple medications during this time including her hydrochlorothiazide and triamterene. She reports she has had problems with falling down on multiple occasions over the last week. Sounds like she has not actually losing consciousness but just losing her balance and too weak to get herself. She traveled to [place] at the beginning of December. Her diarrhea started about 2 weeks after she returned from [place]. She has not had any known ill exposures. She was recently started on a antibiotic for ear infection, amoxicillin. The antibiotic was started after her diarrhea started. She has had no significant fever or abdominal pain. No previous history of gastrointestinal illness, colitis, diarrheal illness. She is being followed for chronic hypercalcemia secondary to primary hyperparathyroidism. She was recently advised to discontinue her hydrochlorothiazide/triamterene and start triamterene alone. She did not do this because the triamterene cost too much money so she remained on hydrochlorothiazide triamterene combined. Today she reports having had 3 bowel movements, watery stools with minimal formed stool. No blood. She feels profoundly weak. She reports no shortness of breath, chest pain, palpitations, fever, abdominal pain, vomiting. Exam Narrative: Exam Narrative: She is alert and appears in no distress. She gives her own history. Eyes are normal. Sclerae nonicteric. Oropharynx with small airway. Neck is supple without mass or adenopathy. Pinnas external canals and TMs bilaterally are normal without erythema or evidence of middle ear disease. Respirations are clear to auscultation. Breathing is unlabored. Cardiovascular: S1, S2, regular rate and rhythm. No murmur gallop or rub. Abdomen is soft without tenderness or mass. Bowel sounds are very active. External genitalia normal. Extremities are normal. Trace edema in the ankles. Intact pedal pulses and good perfusion. Const: Vital Signs, click to edit/add: Vital Signs - 24 hr 02/12/23 12:17 02/12/23 16:54 02/12/23 16:57 Temperature 96.9 F L 97.7 F Pulse Rate Pulse Rate [Pulse Oximeter] 74 Pulse Rate [Right Brachial] 81 Pulse Rate [orthos tatic lying Right Pulse Oximeter] Pulse Rate [orthos tatic sitting Righ t Pulse Oximeter] Pulse Rate [orthos tatic standing Rig ht Pulse Oximeter] Respiratory Rate 18 18 18 Blood Pressure [Le ft Arm] 96/58 L Blood Pressure [Ri ght Arm] Blood Pressure [Ri ght Upper Arm] 113/99 H Blood Pressure [or thostatic lying Ri ght Arm] Blood Pressure [or thostatic sitting Right Arm] Blood Pressure [or thostatic standing Right Arm] Pulse Oximetry 100 100 Oxygen Delivery Me thod Room Air Room Air Oxygen Flow Rate 02/12/23 17:14 02/12/23 18:00 02/12/23 19:30 Temperature 97.7 F Pulse Rate 81 81 Pulse Rate [Pulse Oximeter] 79 Pulse Rate [Right Brachial] Pulse Rate [orthos tatic lying Right Pulse Oximeter] Pulse Rate [orthos tatic sitting Righ t Pulse Oximeter] Pulse Rate [orthos tatic standing Rig ht Pulse Oximeter] Respiratory Rate 16 Blood Pressure [Le ft Arm] Blood Pressure [Ri ght Arm] 96/60 Blood Pressure [Ri ght Upper Arm] Blood Pressure [or thostatic lying Ri ght Arm] Blood Pressure [or thostatic sitting Right Arm] Blood Pressure [or thostatic standing Right Arm] Pulse Oximetry 95 Oxygen Delivery Me thod Room Air Oxygen Flow Rate 02/12/23 23:00 02/12/23 23:00 02/12/23 23:54 Temperature 98 F Pulse Rate 72 Pulse Rate [Pulse Oximeter] 76 Pulse Rate [Right Brachial] Pulse Rate [orthos tatic lying Right Pulse Oximeter] Pulse Rate [orthos tatic sitting Righ t Pulse Oximeter] Pulse Rate [orthos tatic standing Rig ht Pulse Oximeter] Respiratory Rate 16 16 Blood Pressure [Le ft Arm] Blood Pressure [Ri ght Arm] 92/58 L Blood Pressure [Ri ght Upper Arm] Blood Pressure [or thostatic lying Ri ght Arm] Blood Pressure [or thostatic sitting Right Arm] Blood Pressure [or thostatic standing Right Arm] Pulse Oximetry 95 95 Oxygen Delivery Me thod Room Air Room Air Oxygen Flow Rate 02/13/23 04:09 02/13/23 07:00 02/13/23 07:00 Temperature 97.8 F Pulse Rate 77 Pulse Rate [Pulse Oximeter] 72 77 Pulse Rate [Right Brachial] Pulse Rate [orthos tatic lying Right Pulse Oximeter] Pulse Rate [orthos tatic sitting Righ t Pulse Oximeter] Pulse Rate [orthos tatic standing Rig ht Pulse Oximeter] Respiratory Rate 16 16 Blood Pressure [Le ft Arm] 113/71 Blood Pressure [Ri ght Arm] Blood Pressure [Ri ght Upper Arm] Blood Pressure [or thostatic lying Ri ght Arm] Blood Pressure [or thostatic sitting Right Arm] Blood Pressure [or thostatic standing Right Arm] Pulse Oximetry 95 Oxygen Delivery Me thod Room Air Oxygen Flow Rate 02/13/23 07:59 02/13/23 08:00 02/13/23 09:38 Temperature 97 F L Pulse Rate Pulse Rate [Pulse Oximeter] 78 Pulse Rate [Right Brachial] Pulse Rate [orthos tatic lying Right Pulse Oximeter] 80 Pulse Rate [orthos tatic sitting Righ t Pulse Oximeter] 78 Pulse Rate [orthos tatic standing Rig ht Pulse Oximeter] 77 Respiratory Rate 16 16 Blood Pressure [Le ft Arm] 110/70 Blood Pressure [Ri ght Arm] Blood Pressure [Ri ght Upper Arm] Blood Pressure [or thostatic lying Ri ght Arm] 75/49 L Blood Pressure [or thostatic sitting Right Arm] 68/44 L Blood Pressure [or thostatic standing Right Arm] 92/63 Pulse Oximetry 100 100 Oxygen Delivery Me thod Room Air Room Air Oxygen Flow Rate 0 0 Documenting provider has reviewed patient's vital signs: yes Labs Labs: Laboratory Results - last 24 hr 02/12/23 02/12/23 02/12/23 13:40 17:48 23:55 WBC 8.52 RBC 4.59 Hgb 13.8 Hct 36.5 MCV 80 MCH 30 MCHC 38 H RDW Coeff of Jane 12.0 Plt Count 283 Neut % (Auto) 73.3 H Lymph % (Auto) 17.8 L [place] % (Auto) 7.0 Eos % (Auto) 1.1 Baso % (Auto) 0.4 Neut # (Auto) 6.20 Lymph # (Auto) 1.50 [place] # (Auto) 0.60 Eos # (Auto) 0.09 Baso # (Auto) 0.03 Sodium 105 L* 107 L* 109 L* Potassium 3.4 L Chloride 67 L Carbon Dioxide 25 BUN 28 Creatinine 2.0 H Estimated Creat Clear 34.39 Estimated GFR 30 Glucose 100 Lactate Calcium 11.0 H Ionized Calcium Juan Magnesium Total Bilirubin 0.8 Direct Bilirubin 0.7 H AST 56 H ALT 36 H Alkaline Phosphatase 77 C-Reactive Protein Total Protein 7.8 Albumin 4.7 TSH Urine Color Urine Appearance Urine pH Ur Specific [place] Urine Protein Urine Glucose (UA) Urine Ketones Urine Blood Urine Nitrite Urine Bilirubin Urine Urobilinogen Ur Leukocyte Esterase Urine RBC Urine WBC Ur Squamous Epith Cells Urine Bacteria Lab Acknowledgement 02/13/23 02/13/23 02/13/23 04:09 06:24 08:56 WBC 6.04 RBC 4.17 Hgb 12.7 Hct 33.7 MCV 81 MCH 31 MCHC 38 H RDW Coeff of Jane Plt Count 236 Neut % (Auto) Lymph % (Auto) [place] % (Auto) Eos % (Auto) Baso % (Auto) Neut # (Auto) Lymph # (Auto) [place] # (Auto) Eos # (Auto) Baso # (Auto) Sodium 113 L* Potassium 2.8 L* Chloride 81 L Carbon Dioxide 22 BUN 25 Creatinine 1.1 Estimated Creat Clear 62.52 Estimated GFR 60 Glucose 84 Lactate Calcium 10.4 Ionized Calcium Juan 1.18 Magnesium 0.9 L* Total Bilirubin Direct Bilirubin AST ALT Alkaline Phosphatase C-Reactive Protein 0.7 Total Protein Albumin TSH 0.354 Urine Color Yellow Urine Appearance Clear Urine pH 5.5 Ur Specific [place] <= 1.005 Urine Protein Trace A Urine Glucose (UA) Negative Urine Ketones Negative Urine Blood Negative Urine Nitrite Negative Urine Bilirubin Negative Urine Urobilinogen 0.2 Ur Leukocyte Esterase Negative Urine RBC 0-2 Urine WBC 0-2 Ur Squamous Epith Cells Few Urine Bacteria None Lab Acknowledgement Test Added 02/13/23 02/13/23 09:16 09:48 WBC RBC Hgb Hct MCV MCH MCHC RDW Coeff of Jane Plt Count Neut % (Auto) Lymph % (Auto) [place] % (Auto) Eos % (Auto) Baso % (Auto) Neut # (Auto) Lymph # (Auto) [place] # (Auto) Eos # (Auto) Baso # (Auto) Sodium Potassium Chloride Carbon Dioxide BUN Creatinine Estimated Creat Clear Estimated GFR Glucose Lactate Calcium Ionized Calcium Juan Magnesium Total Bilirubin Direct Bilirubin AST ALT Alkaline Phosphatase C-Reactive Protein Total Protein Albumin TSH Urine Color Urine Appearance Urine pH Ur Specific [place] Urine Protein Urine Glucose (UA) Urine Ketones Urine Blood Urine Nitrite Urine Bilirubin Urine Urobilinogen Ur Leukocyte Esterase Urine RBC Urine WBC Ur Squamous Epith Cells Urine Bacteria Lab Acknowledgement Test Added New Spec Needed
--- NOTE | 2023-02-13 12:28 | REH.OT ---
Orders received for OT eval and treat. Attempted x2, pt initially allowing some questions to be asked and then refusing to participate anymore stating she just wants to be left alone. Checked back with second attempt, pt refusal to engage in any conversation or functional activities, requests that we trial again tomorrow.
[2023-02-13 13:28] LABS: Chloride* 81 mmol/L (96-114); Potassium* 3.1 mmol/L (3.6-5.1)
[2023-02-13 13:31] LABS: Blood Urea Nitrogen* 24 mg/dL (7-30); Carbon Dioxide* 26 mmol/L (20-32); Creatinine* 1.2 mg/dL (0.5-1.5); Est. Creatinine Clearance* 57.31; Estimated Glomerular Filt Rate 54 ml/min; Glucose* 131 mg/dL (60-115)
[2023-02-13 13:32] LABS: Calcium* 10.1 mg/dL (8.4-10.6)
[2023-02-13] MEDS: POTASSIUM CHLORIDE 10 MEQ CAPSULE ER 50 MEQ PO (13:37)
[2023-02-13 13:40] LABS: Sodium* 113 mmol/L (135-149)
--- NOTE | 2023-02-13 14:58 | PC.NURSE ---
Pt anxious with staff. Pt demanding fluids- continue to redirect patient and educate on 1500cc FR. Potassium replaced and improving, Sodium improving, Mag replaced today with redraw ordered for 2200. Sister visiting as she is able and very supportive. NS at 100cc. BG 152 at lunch, pt refused sliding scale. low BP's- Dr. gaston aware after orthostatics. Cortisol level pending. BP recheck at 1445 90/60 with manual cuff. Pt requesting lozenges for dry throat. CDIFF sample still needing to be obtained, hat in toilet. SBA when up to BR. OT/PT worked with patient today. Nutrition consult completed.
[2023-02-13] MEDS: POTASSIUM CHLORIDE 10 MEQ CAPSULE ER 40 MEQ PO (17:04)
[2023-02-13] MEDS: LACTATED RINGERS 1000 ML 1,000 ML 500 ML IV (17:17)
[2023-02-13 19:19] LABS: Lactate* 1.2 mmol/L (0.5-1.9)
[2023-02-13 19:35] LABS: Chloride* 85 mmol/L (96-114)
[2023-02-13 19:36] LABS: Potassium* 4.2 mmol/L (3.6-5.1)
[2023-02-13 19:38] LABS: Magnesium* 1.9 mg/dL (1.5-2.6)
[2023-02-13 19:38] LABS: Carbon Dioxide* 26 mmol/L (20-32); Creatinine* 0.8 mg/dL (0.5-1.5); Est. Creatinine Clearance* 85.97; Estimated Glomerular Filt Rate 89 ml/min
[2023-02-13 19:39] LABS: Blood Urea Nitrogen* 21 mg/dL (7-30); Calcium* 10.1 mg/dL (8.4-10.6); Glucose* 109 mg/dL (60-115)
[2023-02-13 19:41] LABS: C.Difficile Negative (Negative); CDIFFEPI 027 PRESUMPTIVE NEGATIVE (Negative)
[2023-02-13 19:44] LABS: Sodium* 115 mmol/L (135-149)
[2023-02-13] MEDS: TRAZODONE HCL 50 MG TABLET PO (21:58)
[2023-02-13] MEDS: MELATONIN 3 MG TABLET 6 MG PO (21:58)
[2023-02-14] VITALS (9 sets, daily range): BP systolic 89–126; BP diastolic 55–84; PULSE 69–90; RESP 16–20; TEMP 35.9–36.7; O2SAT 93–100
[2023-02-14] MEDS: ACETAMINOPHEN 325 MG TABLET 650 MG PO ×2 (03:33→14:57)
[2023-02-14] MEDS: OMEPRAZOLE 20 MG CAPSULE DR PO (07:01)
[2023-02-14] MEDS: 0.9 % SODIUM CHLORIDE 1000 ml 1,000 ML 100 ML IV (07:01)
[2023-02-14 07:20] LABS: Chloride* 89 mmol/L (96-114)
[2023-02-14 07:22] LABS: Creatinine* 0.6 mg/dL (0.5-1.5); Est. Creatinine Clearance* 114.62; Estimated Glomerular Filt Rate 108 ml/min
[2023-02-14 07:23] LABS: Blood Urea Nitrogen* 15 mg/dL (7-30); Calcium* 10.1 mg/dL (8.4-10.6); Carbon Dioxide* 25 mmol/L (20-32); Glucose* 110 mg/dL (60-115)
[2023-02-14 07:24] LABS: Magnesium* 1.5 mg/dL (1.5-2.6)
[2023-02-14 07:44] LABS: Potassium* 2.8 mmol/L (3.6-5.1); Sodium* 122 mmol/L (135-149)
--- NOTE | 2023-02-14 07:57 | PC.NURSE ---
END OF SHIFT NOTE: PT PLEASANT AND COOPERATIVE. PT DENIED CP, SOB, N/V THROUGHOUT SHIFT; PT DID REPORT HEART PALPITATIONS AND SOB WHILE LYING FLAT FOR ORTHOSTATIC BP'S. AMBULATES INDEPENDENTLY WITHIN ROOM. VSS SOFT BP'S, ON RA; AFEBRILE. LSCTA. REPORTS CHRONIC BACK PAIN; PRN PAIN RELIEVER ADMINISTERED (SEE EMAR). PT ON 1500 PER DAY FLUID RESTRICTION. PT REQUESTS TO BE ALLOWED MORE WATER AT NIGHT OR NOT BE WOKE UP DURING THE NIGHT. BED ALARM ON AND CALL LIGHT WITHIN PT?S REACH.?
[2023-02-14] MEDS: POTASSIUM CHLORIDE 10 MEQ CAPSULE ER 40 MEQ PO ×3 (09:22→19:06)
[2023-02-14] MEDS: PIOGLITAZONE HCL 15 MG TABLET 45 MG PO (09:22)
[2023-02-14] MEDS: SERTRALINE 50 MG TABLET PO (09:22)
[2023-02-14] MEDS: MAGNESIUM IV 2 GM/50 ML PIGGYBACK IVPB (09:23)
[2023-02-14] MEDS: ASPIRIN 81 MG TABLET EC PO (09:23)
--- NOTE | 2023-02-14 10:41 | REH.OT ---
Patient declined need for formal OT evaluation. Cognition appears to be back to baseline. Patient up I in room. I in all ADLs. Spoke with hospitalist.
[2023-02-14 12:46] LABS: Chloride* 88 mmol/L (96-114); Potassium* 3.3 mmol/L (3.6-5.1)
[2023-02-14 12:49] LABS: Blood Urea Nitrogen* 12 mg/dL (7-30); Calcium* 9.8 mg/dL (8.4-10.6); Carbon Dioxide* 27 mmol/L (20-32); Creatinine* 0.6 mg/dL (0.5-1.5); Est. Creatinine Clearance* 114.62; Estimated Glomerular Filt Rate 108 ml/min; Glucose* 147 mg/dL (60-115); Magnesium* 1.8 mg/dL (1.5-2.6)
[2023-02-14 12:52] LABS: Sodium* 123 mmol/L (135-149)
--- NOTE | 2023-02-14 12:56 | P.IMPN_ITS ---
Progress Note: A&P Assessment and plan (1) Hyponatremia: Problem details: Sodium level 105 on admission. Now 2 days later up to 123. Main symptoms appear to be fatigue and weakness and ataxia which are much improved. Most likely multifactorial including from stated diarrhea, use of hydrochlo rothiazide, and water intoxication. Status: Acute (2) Hypokalemia: Problem details: Likely from wasting from diarrhea. Potassium supplementation and monitor. Status: Acute (3) Hypomagnesemia: Problem details: Replace and follow. Resume outpatient magnesium supplementation Status: Acute (4) Tobacco dependence: Problem details: 1/2 ppd x 25 years. 14 mg patch applied transdermally once daily. Status: Acute (5) Diabetes mellitus type 2 in obese: Problem details: Sliding scale insulin while in hospital. 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 Joanna Yanez. Presumed primary hyperparathyroidism. Status: Acute (7) Diarrhea: Problem details: Onset 4 weeks ago and continuing. C diff test is negative. O and P and cultures and viral studies pending Status: Acute (8) Hypotension: Problem details: Likely primarily due to volume depletion. Check cortisol level due to multiple other electrolyte and endocrine concerns. Initiate hydrocortisone if hypotensive now that she is eating and volume status is improved Status: Acute Plan Continue in hospital for ongoing monitoring of electrolytes. If she is able to maintain her electrolytes overnight possible discharge to home tomorrow for outpatient follow-up. Time Spent With Patient Total time spent: Total time spent today is 40 minutes, 30 minutes in coordination of care and discussing with patient ongoing evaluation management of electrolyte problems and diarrhea Subjective Date Seen: 02/14/23 Interval history: Jerilyn Orosco is a 52 year old woman in her usual state of health until about 4 weeks ago.? 4 weeks ago she had the onset of diarrhea.? She has had persistent diarrhea since then although it seems to have resolved over the last couple of days.? She has not had a bowel movement for the last couple of days.? Maximum number of stool she had an any particular day was 8.? Describes her stools as watery, dark, sometimes green.? Denies blood or melena in her stool.? Denies frothy stools.? Denies light-colored stools.? In association with this she has had decreased urine output.? She has had a dry mouth.? She has tried to drink a lot a water to maintain her state of hydration.? She states she has drink up to 3 bottles of water daily to try to achieve this.? Despite that she is still has had a dry mouth.? Denies fevers, rigors, diaphoresis.? Denies rashes.? Has continued to take her multiple medications during this time including her hydr ochlorothiazide and triamterene. She reports she has had problems with falling down on multiple occasions over the last week. Sounds like she has not actually losing consciousness but just losing her balance and too weak to get herself. She traveled to [place] at the beginning of December. Her diarrhea started about 2 weeks after she returned from [place]. She has not had any known ill exposures. She was recently started on a antibiotic for ear infection, amoxicillin. The antibiotic was started after her diarrhea started. She has had no significant fever or abdominal pain. No previous history of gastrointestinal illness, colitis, diarrheal illness. She is being followed for chronic hypercalcemia secondary to primary hyperparathyroidism. She was recently advised to discontinue her hyd rochlorothiazide/triamterene and start triamterene alone. She did not do this because the triamterene cost too much money so she remained on hydrochlorothiazide triamterene combined. Today she reports having had 1 loose bowel movement. Stool test negative for C diff. Other stool cultures are pending. No blood. She is feeling much stronger today. She was walking in the hallway without requiring assistance. She reports her balance is much better. Her appetite is improved and she has been eating much better. She reports no shortness of breath, chest pain, palpitations, fever, abdominal pain, vomiting. Exam Narrative: Exam Narrative: She is alert and appears in no distress. She is oriented to her circumstances and her speech is normal. Respirations are clear to auscultation. Cardiovascular: S1, S2, regular rate and rhythm. Abdomen: Bowel sounds active. Abdomen is soft without tenderness or mass. Extremities without edema. Well perfused in all 4 extremities. Const: Vital Signs, click to edit/add: Vital Signs - 24 hr 02/13/23 13:40 02/13/23 15:00 02/13/23 15:00 Temperature Pulse Rate Pulse Rate [Pulse Oximeter] 81 Pulse Rate [orthos tatic lying Right Pulse Oximeter] Pulse Rate [orthos tatic sitting Righ t Pulse Oximeter] Pulse Rate [orthos tatic standing Rig ht Pulse Oximeter] Respiratory Rate 16 16 Blood Pressure [Le ft Arm] 90/30 L Blood Pressure [Ri ght Arm] Blood Pressure [or thostatic lying Ri ght Arm] Blood Pressure [or thostatic sitting Right Arm] Blood Pressure [or thostatic standing Right Arm] Pulse Oximetry 96 Oxygen Delivery Me thod Room Air Oxygen Flow Rate 0 02/13/23 15:00 02/13/23 15:00 02/13/23 19:00 Temperature 97 F L 98 F Pulse Rate 77 Pulse Rate [Pulse Oximeter] 78 78 Pulse Rate [orthos tatic lying Right Pulse Oximeter] Pulse Rate [orthos tatic sitting Righ t Pulse Oximeter] Pulse Rate [orthos tatic standing Rig ht Pulse Oximeter] Respiratory Rate 16 16 Blood Pressure [Le ft Arm] 88/58 L 80/44 L Blood Pressure [Ri ght Arm] Blood Pressure [or thostatic lying Ri ght Arm] Blood Pressure [or thostatic sitting Right Arm] Blood Pressure [or thostatic standing Right Arm] Pulse Oximetry 95 96 Oxygen Delivery Me thod Room Air Room Air Oxygen Flow Rate 0 0 02/13/23 23:00 02/13/23 23:00 02/13/23 23:00 Temperature 98.4 F Pulse Rate Pulse Rate [Pulse Oximeter] 74 74 Pulse Rate [orthos tatic lying Right Pulse Oximeter] Pulse Rate [orthos tatic sitting Righ t Pulse Oximeter] Pulse Rate [orthos tatic standing Rig ht Pulse Oximeter] Respiratory Rate 16 16 16 Blood Pressure [Le ft Arm] 89/54 L Blood Pressure [Ri ght Arm] Blood Pressure [or thostatic lying Ri ght Arm] Blood Pressure [or thostatic sitting Right Arm] Blood Pressure [or thostatic standing Right Arm] Pulse Oximetry 96 96 Oxygen Delivery Me thod Room Air Room Air Oxygen Flow Rate 0 0 02/14/23 01:00 02/14/23 03:00 02/14/23 06:00 Temperature 98.0 F Pulse Rate 90 Pulse Rate [Pulse Oximeter] 73 Pulse Rate [orthos tatic lying Right Pulse Oximeter] 69 Pulse Rate [orthos tatic sitting Righ t Pulse Oximeter] 73 Pulse Rate [orthos tatic standing Rig ht Pulse Oximeter] 85 Respiratory Rate 16 Blood Pressure [Le ft Arm] Blood Pressure [Ri ght Arm] 95/59 L Blood Pressure [or thostatic lying Ri ght Arm] 106/64 Blood Pressure [or thostatic sitting Right Arm] 112/64 Blood Pressure [or thostatic standing Right Arm] 126/84 Pulse Oximetry 97 Oxygen Delivery Me thod Room Air Oxygen Flow Rate 0 02/14/23 07:11 02/14/23 08:00 02/14/23 08:00 Temperature 97.5 F L Pulse Rate 78 Pulse Rate [Pulse Oximeter] 82 Pulse Rate [orthos tatic lying Right Pulse Oximeter] Pulse Rate [orthos tatic sitting Righ t Pulse Oximeter] Pulse Rate [orthos tatic standing Rig ht Pulse Oximeter] Respiratory Rate 16 16 Blood Pressure [Le ft Arm] Blood Pressure [Ri ght Arm] 95/58 L Blood Pressure [or thostatic lying Ri ght Arm] Blood Pressure [or thostatic sitting Right Arm] Blood Pressure [or thostatic standing Right Arm] Pulse Oximetry 94 94 Oxygen Delivery Me thod Room Air Room Air Oxygen Flow Rate 0 0 02/14/23 08:00 02/14/23 12:14 Temperature 97.8 F Pulse Rate Pulse Rate [Pulse Oximeter] 82 80 Pulse Rate [orthos tatic lying Right Pulse Oximeter] Pulse Rate [orthos tatic sitting Righ t Pulse Oximeter] Pulse Rate [orthos tatic standing Rig ht Pulse Oximeter] Respiratory Rate 16 18 Blood Pressure [Le ft Arm] Blood Pressure [Ri ght Arm] 96/56 L Blood Pressure [or thostatic lying Ri ght Arm] Blood Pressure [or thostatic sitting Right Arm] Blood Pressure [or thostatic standing Right Arm] Pulse Oximetry 93 Oxygen Delivery Me thod Room Air Oxygen Flow Rate 0 Documenting provider has reviewed patient's vital signs: yes Labs Labs: Laboratory Results - last 24 hr 02/13/23 02/13/23 02/13/23 13:10 18:20 19:06 Sodium 113 L* 115 L* Potassium 3.1 L 4.2 Chloride 81 L 85 L Carbon Dioxide 26 26 BUN 24 21 Creatinine 1.2 0.8 Estimated Creat Clear 57.31 85.97 Estimated GFR 54 89 Glucose 131 H 109 Lactate Calcium 10.1 10.1 Magnesium Stl C. diff Tox B Gene Negative Stl C. diff [id number] PRESUMPTIVE NEGATIVE 06/20/23 06/20/23 06/21/23 19:13 19:16 05:49 Sodium 122 L* Potassium 2.8 L* Chloride 89 L Carbon Dioxide 25 BUN 15 Creatinine 0.6 Estimated Creat Clear 114.62 Estimated GFR 108 Glucose 110 Lactate 1.2 Calcium 10.1 Magnesium 1.9 1.5 Stl C. diff Tox B Gene Stl C. diff [id number] 02/14/23 12:23 Sodium 123 L* Potassium 3.3 L Chloride 88 L Carbon Dioxide 27 BUN 12 Creatinine 0.6 Estimated Creat Clear 114.62 Estimated GFR 108 Glucose 147 H Lactate Calcium 9.8 Magnesium 1.8 Stl C. diff Tox B Gene Stl C. diff [id number]
--- NOTE | 2023-02-14 14:00 | PC.NURSE ---
end of shift. pt has been pleasant but she is anxious. Pt is on a 1500cc FR. she is eating, drinking and voiding. BS 130 and 106 no insulin. ? Potassium was replaced and magnesium, was given then IV was SL. Her Sister was visiting, she is supportive.? OT/PT worked with her today/ SL is patent. will monitor.
[2023-02-14] MEDS: IBUPROFEN 600 MG TABLET PO ×2 (15:33→20:50)
[2023-02-14] MEDS: TRAZODONE HCL 50 MG TABLET PO (20:50)
[2023-02-14] MEDS: MELATONIN 3 MG TABLET 6 MG PO (20:50)
[2023-02-14] MEDS: MAGNESIUM OXIDE 400 MG TABLET PO (20:51)
--- NOTE | 2023-02-14 22:10 | PC.NURSE ---
End of Shift: Pt reports back pain ranging between 5-8/10. Aqua K applied, pt reports pain improved at home with ibuprofen. MD contacted, verbal order for ibuprofen 600mg TID PRN taken and entered. Pt refused long acting insulin at HS d/t concerns for hypoglycemia since she hadn't eaten much for dinner. No BM during shift. Pt ambulating independently in room.
[2023-02-15 02:41] LABS: Cortisol, Serum 12.6 ug/dL
[2023-02-15 03:45] VITALS: BP 107/65; PULSE 81; RESP 16; TEMP 36.5; O2SAT 100
[2023-02-15] MEDS: IBUPROFEN 600 MG TABLET PO (04:56)
--- NOTE | 2023-02-15 05:34 | PC.NURSE ---
END OF SHIFT NOTE: PT REQUEST TO SLEEP UNTIL 0330. FOCUSED ASSESSMENT COMPLETED AT BEGINNING OF SHIFT. FULL ASSESSMENT COMPLETED @0345. PT DENIES CP, SOB, N/V. AMBULATES INDEPENDENTLY. VSS ON RA; AFEBRILE. PT RATES CHRONIC BACK PAIN 10/ WITH SOME RELIEF FROM IBUPROFEN ADMINISTRATION.?TELE READS NSR. CALL LIGHT WITHIN PT?S REACH.
[2023-02-15] MEDS: OMEPRAZOLE 20 MG CAPSULE DR PO (06:14)
[2023-02-15 07:00] LABS: Chloride* 92 mmol/L (96-114); Sodium* 126 mmol/L (135-149)
[2023-02-15 07:03] LABS: Carbon Dioxide* 28 mmol/L (20-32); Creatinine* 0.6 mg/dL (0.5-1.5); Est. Creatinine Clearance* 114.62; Estimated Glomerular Filt Rate 108 ml/min
[2023-02-15 07:04] LABS: Blood Urea Nitrogen* 12 mg/dL (7-30); Calcium* 10.1 mg/dL (8.4-10.6); Glucose* 113 mg/dL (60-115)
[2023-02-15 07:13] VITALS: PULSE 71
[2023-02-15 07:45] VITALS: BP 107/68; PULSE 74; RESP 16; TEMP 36.9; O2SAT 94
[2023-02-15 08:06] VITALS: PULSE 74; RESP 16
[2023-02-15] MEDS: POTASSIUM CHLORIDE 10 MEQ CAPSULE ER 20 MEQ PO (09:02)
[2023-02-15] MEDS: ASPIRIN 81 MG TABLET EC PO (09:02)
[2023-02-15] MEDS: MAGNESIUM OXIDE 400 MG TABLET PO (09:02)
[2023-02-15] MEDS: SERTRALINE 50 MG TABLET PO (09:02)
[2023-02-15] MEDS: PIOGLITAZONE HCL 15 MG TABLET 45 MG PO (09:26)
--- NOTE | 2023-02-15 09:30 | PC.SOCIAL ---
Per MD, there is no social work needs for pt regarding discharge planning. Pt is ambulating well and expected to discharge today. Social work may follow up as needed.
[2023-02-15 09:40] VITALS: PULSE 71; RESP 16; TEMP 36.9
[2023-02-15 10:20] VITALS: PULSE 71; RESP 16; TEMP 36.9
--- NOTE | 2023-02-15 10:28 | P.DS_ITS ---
DS: Providers Provider Date Seen: 02/15/23 Date of admission: 02/12/23 17:19 Primary care physician: Not a Local Provider Admitting Clinician: Nimco Gutierrez MD Attending Physician on discharge: Oh Goldberg MD Date of Discharge: 02/15/23 DS: Diagnosis Discharge Diagnosis (1) Hyponatremia: Status: Acute Problem details: Sodium level 105 on admission. Now 3 days later on discharge 126. Main symptoms appear to be fatigue and weakness and ataxia which are much improved. Most likely multifactorial including from stated diarrhea, use of hydrochlorothi azide, and excess free water consumption due to diarrhea. (2) Hypokalemia: Status: Acute Problem details: Likely from diarrhea. Potassium supplementation ongoing with outpatient follow- up and monitoring (3) Hypomagnesemia: Status: Acute Problem details: Replace and follow. Resume outpatient magnesium supplementation and outpatient monitoring (4) Hypotension: Status: Acute Problem details: Likely primarily due to volume depletion. Check cortisol level due to multiple other electrolyte and endocrine concerns. Hypotension resolved with discontinuing blood pressure medicines and volume replacement. (5) Tobacco dependence: Status: Acute Problem details: 1/2 ppd x 25 years. 14 mg patch applied transdermally once daily. (6) Diabetes mellitus type 2 in obese: Status: Acute Problem details: Sliding scale insulin while in hospital. 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 Presumed primary hyperparathyroidism. (8) Diarrhea: Status: Acute Problem details: Onset 4 weeks ago and continuing. C diff test is negative. O and P and cultures and viral studies pending DS: Summary Hospital Course Hospital Course: 52-year-old female admitted to the hospital with a 1 month history of diarrhea, weakness, ataxia and falling down. On admission she was found have a sodium of 105 as well as other electrolyte problems. She had gradual correction of her sodium over 3 days to a sodium of 126 today. Hydrochlorothiazide was held. She had a fluid restriction and received isotonic normal saline. She resumed a normal diet. Potassium and magnesium were also markedly low. These were also replaced with supplementation. She was seen to be hypotensive. Antihypertensive medications were discontinued. She received moderately large volumes of IV fluids which did eventually correct her hypotension. Today she reports feeling much better in all regards. She has been able to ambulate in the [place] without ataxia or weakness. She is eating a normal diet. She reports no other symptoms or concerns today. Status at Discharge Functional status at discharge: independent ambulation Overall status at discharge: patient is back to baseline Time Spent with Patient Time attestation: Total time spent providing and/or coordinating discharge services: Time spent: Greater than 30 minutes Exam Narrative: Exam Narrative: She is alert and appears in no distress. Speech is normal. She is oriented to her circumstances. Breathing is unlabored. She ambulates without difficulty. No significant edema. Const: Vital Signs, click to edit/add: Vital Signs - 24 hr 02/14/23 12:14 02/14/23 15:00 02/14/23 15:00 Temperature 97.8 F 96.6 F L Pulse Rate Pulse Rate [Pulse Oximeter] 80 81 Respiratory Rate 18 20 20 Blood Pressure [Le ft Arm] Blood Pressure [Ri ght Arm] 96/56 L 89/55 L Pulse Oximetry 93 100 100 Oxygen Delivery Ne thod Room Air Room Air Room Air Oxygen Flow Rate 0 02/14/23 15:00 02/14/23 19:00 02/14/23 23:00 Temperature 96.8 F L Pulse Rate 73 74 Pulse Rate [Pulse Oximeter] 82 Respiratory Rate 18 Blood Pressure [Le ft Arm] Blood Pressure [Ri ght Arm] 112/70 Pulse Oximetry 100 Oxygen Delivery Ne thod Room Air Oxygen Flow Rate 02/15/23 03:45 02/15/23 03:45 02/15/23 03:45 Temperature 97.7 F Pulse Rate Pulse Rate [Pulse Oximeter] 81 81 Respiratory Rate 16 16 16 Blood Pressure [Le ft Arm] 107/65 Blood Pressure [Ri ght Arm] Pulse Oximetry 100 [facility] Room [facility] O[facility] Flow Rate 0 0 02/15/23 07:13 02/15/23 07:45 02/15/23 07:45 Temperature 98.5 F Pulse Rate 71 Pulse Rate [Pulse Oximeter] 74 Respiratory Rate 16 16 Blood Pressure [Le ft Arm] Blood Pressure [Ri ght Arm] 107/68 Pulse Oximetry 94 94 Oxygen Delivery Ne thod Room Air Room Air Oxygen Flow Rate 0 0 02/15/23 08:06 02/15/23 09:40 02/15/23 10:20 Temperature 98.5 F 98.5 F Pulse Rate 71 71 Pulse Rate [Pulse Oximeter] 74 Respiratory Rate 16 16 16 Blood Pressure [Le ft Arm] Blood Pressure [Ri ght Arm] Pulse Oximetry Oxygen Delivery Me thod Oxygen Flow Rate Documenting provider has reviewed patient's vital signs: yes DS: Data Data Completed and Pending Labs on day of discharge: Labs from last 24 hours 02/15/23 02/14/23 02/13/23 06:07 12:23 13:10 Sodium 126 L 123 L* Potassium 4.0 3.3 L Chloride 92 L 88 L Carbon Dioxide 28 27 BUN 12 12 Creatinine 0.6 0.6 Estimated Creat Clear 114.62 114.62 Estimated GFR 108 108 Glucose 113 147 H Calcium 10.1 9.8 Magnesium 1.8 Cortisol 12.6 Discharge Plan Discharge Disposition: Home, Self-Care Date of Admission: 02/12/23 17:19 Attending Provider on Discharge: Cristian Goldberg Primary Care Provider: Provider,Not a Local Condition: Improved Anticipated Discharge Date/Time: 02/15/23 09:00 Discharge Medications: New potassium chloride 10 mEq capsule, extended release 10 meq PO DAILY Qty: 30 0RF magnesium oxide 400 mg magnesium capsule 400 mg PO DAILY Qty: 30 0RF Continued pantoprazole 40 mg tablet,delayed release (DR/EC) 40 mg PO BID pioglitazone 45 mg tablet 45 mg PO DAILY simvastatin 40 mg tablet 40 mg PO HS albuterol sulfate 90 mcg/actuation HFA aerosol inhaler 2 puff INHALATION Q4H PRN (Reason: dyspnea) fluticasone propionate 50 mcg/actuation spray,suspension 1 - 2 spray INTRANASAL DAILY insulin glargine-yfgn [Semglee(insulin glarg-yfgn)Pen] 100 unit/mL (3 mL) insulin pen 30 unit subcut HS aspirin 81 mg capsule 81 mg PO DAILY sertraline 50 mg tablet 50 mg PO DAILY metformin 500 mg tablet 1,000 mg PO BID trazodone 50 mg tablet 50 mg PO QPM Discontinued metformin 1,000 mg tablet 1,000 mg PO BID lisinopril 20 mg PO DAILY triamterene 50 mg capsule 50 mg PO BID Discharge Orders: Discharge Order (Routine); Ordered 02/15/23 Ordered By: Cristian Goldberg Patient Education: Potassium Chloride (By mouth), Magnesium Oxide (By mouth), Hyponatremia (DC) Additional Instructions: See your doctor, Clarisa Morillo MD, next week. She will need to recheck your blood tests, magnesium and basic metabolic panel. She can also decide what to do with your blood pressure medications. I have stopped your diuretic, Dyazide, because of your low sodium and your low blood pressure. I have stopped your lisinopril because of your low blood pressure. I have added a magnesium pill and a potassium pill to take daily pending your outpatient follow-up. Your diarrhea is better. Your doctor will need to follow-up on this as well. We did stool studies in the hospital. Those results will not come back until next week. I am not restricting your fluid intake. Drink according to your thirst. If your diarrhea is getting worse you can drink more fluids but those fluids should contain some salt, like Gatorade or Pedialyte or chicken soup, or you can drink water and eat food that has some salt in it. Activity Level: No Restrictions Discharge Diet: Regular Follow Up Appointments: Clarisa Morillo [Other] (FOLLOW UP IN 1 WEEK) [facility] [Outside] - 02/21/23 10:40 am ([facility] with Dr. Skelton for f/u and magnesium & basic metabolic panel. [id number] ) Forms: [employer] Info Instructions
--- NOTE | 2023-02-15 11:55 | PC.NURSE ---
Discharge. pt is still very pleasant but she is anxious at times.? pain back was 8/10 and she is getting Tylenol and ibuprofen as needed. she is eating, drinking and voiding. she had a BM overnights ? BS 120? no insulin. ? ? SL is patent and it was later d/c intact. ? Her? Sister took her home, she is supportive.? went over discharge packet with pt and sister. tele was NSR and it was d/c intact. appointments x1, medications x2, instructions and education. she went over and signed personal belonging sheet. all paperwork and belongings sent with pt. she got a w/c ride to car and was helped in to car. she also got paperwork for her doctor.
[2023-02-15 22:12] LABS: Cortisol, Serum 18.1 ug/dL
[2023-02-17 06:11] LABS: Ova and Parasite, Fecal Negative (Negative)
[2023-02-18 09:16] LABS: Adenovirus PCR Not Detected; Astrovirus PCR Not Detected; Campylobacter PCR Not Detected; Cryptosporidium PCR Not Detected; Cyclospora cayetanensis PCR Not Detected; Entamoeba histolytica PCR Not Detected; Enteroaggregative E coli PCR Not Detected; Enteropathogenic E coli PCR Not Detected; Enterotoxigenic E coli PCR Not Detected; Giardia lamblia PCR Not Detected; Norovirus Gi/GII PCR Not Detected; Plesiomonas shig PCR Not Detected; Rotavirus A PCR Not Detected; Salmonella PCR Not Detected; Sapovirus PCR Not Detected; Shiga toxin E coli PCR Not Detected; Shigella/Enteroinvasive E coli Not Detected; Vibrio PCR Not Detected; Vibrio cholerae PCR Not Detected; Yersinia enterocolitica PCR Not Detected
== END 2023-02-15 11:45 | disposition home or self-care (01) | DRG 641 ==
LOC: ED 15:49 → MEDSURG 16:36
PROVIDERS: Family Medicine; Admitting Provider Family Medicine; Emergency Provider Emergency Medicine Emergency Medical Services; Visit Provider Internal Medicine
DX: E87.1 Hypo-osmolality and hyponatremia (principal); E87.79 Other fluid overload; R19.7 Diarrhea, unspecified; T50.2X5A Adverse effect of carbonic-anhydrase inhibitors, benzothiadiazides and other diuretics, initial encounter; E83.52 Hypercalcemia; E87.6 Hypokalemia; E11.69 Type 2 diabetes mellitus with other specified complication; F41.9 Anxiety disorder, unspecified; E83.42 Hypomagnesemia; I95.9 Hypotension, unspecified; E05.90 Thyrotoxicosis, unspecified without thyrotoxic crisis or storm; E66.9 Obesity, unspecified; Z68.33 Body mass index [BMI] 33.0-33.9, adult; F17.210 Nicotine dependence, cigarettes, uncomplicated; I10 Essential (primary) hypertension; J45.909 Unspecified asthma, uncomplicated; K21.9 Gastro-esophageal reflux disease without esophagitis; E78.2 Mixed hyperlipidemia; F51.04 Psychophysiologic insomnia
CPT/HCPCS: 36415; 70450; 80048; 80076; 81001; 82024; 82330; 82533; 82962; 83605; 83735; 84295; 84443; 85025; 85027; 86140; 87045; 87046; 87177; 87209; 87252; 87427; 87493; 87505; 97116; 97162; 99284; A9270; J2405; J3475; J7030; J7120